=== PATIENT | female | born 1995 | race African-American/Black ===

== ENCOUNTER 2022-02-13 12:59 | Emergency (ER) | payer OTHER ==
[~2022-02-13] VITALS: Ht 160 cm; Wt 87.8 kg
[2022-02-13 13:16] VITALS: BP 113/77
--- NOTE | 2022-02-13 13:21 | NUR ---
PT AMB TO BED 7.
[2022-02-13 14:02] LABS: BASOPHILS # (AUTO) 0.1 K/uL (0.00-0.22); EOSINOPHILS # (AUTO) 0.2 K/uL (0-0.4); EOSINOPHILS % (AUTO) 3.1 % (0.0-4.0); HEMATOCRIT 40.8 % (36-48); HEMOGLOBIN 13.8 g/dL (12.0-16.0); LYMPHOCYTES % (AUTO) 43.7 % (20.5-51.1); MEAN CORPUSCULAR HEMOGLOBIN 30 pg (27-31); MEAN CORPUSCULAR HGB CONC 34 g/dL (33-37); MONOCYTES # (AUTO) 0.3 K/uL (0.8-1.0); MONOCYTES % (AUTO) 4.5 % (1.7-9.3); NEUTROPHILS # (AUTO) 3.3 K/uL (1.8-7.7); NEUTROPHILS % (AUTO) 47.7 % (42.2-75.2); PLATELET COUNT (AUTO) 452 K/uL (140-450); RED BLOOD CELL COUNT(AUTO) 4.58 MIL/uL (4.20-5.40); RED CELL DISTRIBUTION WIDTH 15.1 % (11.6-13.7); WHITE BLOOD COUNT (AUTO) 6.9 K/uL (4.8-10.8)
[2022-02-13] MEDS ORDERED: MORPHINE SULFATE 4 MG/ML SYR IM ONE (14:10)
[2022-02-13] MEDS ORDERED: TRAM50TA1 PO (14:44)
--- NOTE | 2022-02-13 14:56 | NUR ---
26YO FEMALE PT C/O VAGINAL BLEEDING AND 03/17 "FLAMING" L PELVIC PAIN X3 WEEKS. PT REPORTS VAGINAL BLEEDING STARTED ON January WITH "BRIGHT RED COLORING" AND IS NOW "FADED BROWN". PT DENIES VISIBLE CLOTS. PT HAS HAD CONSISTENT BUT MILD BLEEDING AND WILL GO THROUGH 3-4 NON SOAKED PADS A DAY. PT STATES L PELVIC PAIN WITH OCCASIONAL RADIATION TO LL BACK. PT WAS SEEN FOR SYMPTOMS ABOUT 2 WEEKS AGO AND WAS GIVEN RX TO STOP BLEEDING, PT UNSURE OF NAME, HAD NO RELIEF . PT STATES TAKING IBUPROFEN FOR PAIN, HAD NO RELIEF. PT DENIES N/V/D OR ABDOMINAL PAIN. L PELVIC TENDER TO TOUCH. PT AAOX4, NO VISIBLE DISTRESS, RESPIRATIONS EVEN AND UNLABORED. NKA NHX
[2022-02-13 15:09] VITALS: BP 121/80
--- NOTE | 2022-02-13 15:09 | NUR ---
Patient discharged with v/s stable. Written and verbal after care instructions FOR OVARIAN CYST AND ABDOMINAL UTERINE BLEEDING given and explained. Patient alert, oriented and verbalized understanding of instructions. Ambulatory with steady gait. All questions addressed prior to discharge. ID band removed. Patient advised to follow up with PMD. Rx of TRAMADOL given. Opportunity to ask questions provided and answered.
--- NOTE | 2022-02-13 15:10 | NUR ---
Chart checked and completed. The patient's care was reviewed and supervised by Modesta Chseter RN.
[2022-02-13 16:45] LABS: APPEARANCE,URINE SL CLOUDY (CLEAR); BILIRUBIN,URINE NEGATIVE (NEGATIVE); BLOOD, URINE 3+ (NEGATIVE); COLOR,URINE DARK YELLOW (YELLOW); LEUKOCYTE ESTERASE ,URINE TRACE (NEGATIVE); NITRITE, URINE NEGATIVE (NEGATIVE); UGLUCOSE NEGATIVE (NEGATIVE)
[2022-02-13 17:24] LABS: RBC,URINE 20-50 /HPF (0-5); WBC,URINE 16-25 (MOD) /HPF (0-5)
== END 2022-02-13 15:09 | disposition home or self-care (01) ==
LOC: MED 12:59
DX: N93.9 Abnormal uterine and vaginal bleeding, unspecified (principal); N83.209 Unspecified ovarian cyst, unspecified side; Z79.899 Other long term (current) drug therapy
CPT/HCPCS: 36415; 76830; 81001; 81025; 85025; 96372; 99284; J2270; Q0092